=== PATIENT | female | born 1955 | race Caucasian/White ===

== ENCOUNTER 2021-06-18 10:12 | Outpatient (CLI) | payer MEDICARE | END 2021-06-18 23:59 | disposition home or self-care (01) | LOC: CFH 10:12 | PROVIDERS: ATTEND Internal Medicine Cardiovascular Disease | DX: R07.89 Other chest pain (principal); I35.1 Nonrheumatic aortic (valve) insufficiency; J98.4 Other disorders of lung; J47.9 Bronchiectasis, uncomplicated; R91.1 Solitary pulmonary nodule | CPT/HCPCS: 75571 ==